=== PATIENT | female | born 1985 | race Caucasian/White ===

== ENCOUNTER 2021-02-27 18:56 | Emergency (ER) | payer SELFPAY ==
[2021-02-27 19:10] VITALS: BP 129/77; PULSE 88; TEMP 98.9; BMI 42.9
== END 2021-02-27 20:21 | disposition home or self-care (01) ==
LOC: JERFT 18:56
DX: S61.101A Unspecified open wound of right thumb with damage to nail, initial encounter (principal); Y99.8 Other external cause status
CPT/HCPCS: 99282-25